=== PATIENT | female | born 1985 | race Two or more races ===

== ENCOUNTER → 2020-05-08 | Day surgery (SDC) | payer OTHER ==
[~2020-05-08] VITALS: Ht 167.6 cm; Wt 72.6 kg
[~2020-05-08] MED LIST: ALLERTEC PO; ALPRAZOLAM 0.5 MG TAB ONE; DIM PO; DIPHENHYDRAMINE HCL 25 MG CAP ONE; FAMOTIDINE 20 MG/2 ML VIAL IV ONE; FENTANYL CITRATE/PF 100MCG/2 ML INJ ONE; HEPARIN SOD (PORCINE) 1000 UNIT/ML 30ML ONE; HEPARIN SOD/SOD CHLORIDE 2,000 ML ONE; IOPAMIDOL 300MG/ML 100 ML INFUS..BTL IV ONE; LIDOCAINE HCL 2% LOCAL 20 ML VIAL ONE; MAGNESIUM500 MG PO; METHYLPREDNISOLONE SOD SUCC 125 MG/2ML VIAL ONE; MIDAZOLAM HCL 2 MG/2 ML VIAL ONE; NP THYROID60 MG PO; PRILOSEC OTC20 MG PO; PRIMROSE OIL PO; SODIUM CHLORIDE 0.9% 1000ML 1,000 ML ONE
[2020-05-08 13:55] VITALS: BP 93/52
[2020-05-08 14:00] VITALS: BP 87/61
[2020-05-08 14:16] VITALS: BP 99/58
[2020-05-08 14:30] VITALS: BP 88/57
[2020-05-08 14:46] VITALS: BP 103/64
[2020-05-08 15:00] VITALS: BP 105/62
== END | disposition home or self-care (01) ==
LOC: CATH LAB 08:00
PROVIDERS: ATTEND Internal Medicine Interventional Cardiology
DX: N94.89 Other specified conditions associated with female genital organs and menstrual cycle (principal); I87.1 Compression of vein; I87.2 Venous insufficiency (chronic) (peripheral); Z20.828 Contact with and (suspected) exposure to other viral communicable diseases
CPT/HCPCS: 36011; 36251; 37252; 37253; 75625 ×2; 75833; 76937; 81025; C1753; C1769 ×2; C1874; J2001; J2250; J2930; J3010; J7030; Q9967; U0002; 36010; 99152; 99153; J1644